=== PATIENT | female | born 1990 ===

== ENCOUNTER → 2017-12-12 | Outpatient (CLI) | payer BC ==
[2017-12-13 12:18] LABS: Source Cervix
[2017-12-21 12:26] LABS: HPV High Risk DNA Not Detected (NOTDET)
== END ==
LOC: LAB 17:32 → LAB SHORT 17:32
PROVIDERS: Registered Nurse Community Health
DX: Z12.4 Encounter for screening for malignant neoplasm of cervix (principal); R87.619 Unspecified abnormal cytological findings in specimens from cervix uteri
CPT/HCPCS: 87624; G0123

== ENCOUNTER → 2018-01-18 | Outpatient (CLI) | payer BC | LOC: LAB SHORT 07:47 → LAB 07:47 | PROVIDERS: Registered Nurse Community Health | DX: R87.89 Other abnormal findings in specimens from female genital organs (principal); B97.7 Papillomavirus as the cause of diseases classified elsewhere | CPT/HCPCS: 88305 ==